=== PATIENT | female | born 1975 | race Caucasian/White ===

== ENCOUNTER 2017-02-16 12:14 | Emergency (ER) | payer MEDICAID ==
[~2017-02-16] VITALS: Ht 160 cm; Wt 83.5 kg
[2017-02-16 12:18] VITALS: Ht 160 cm; Wt 83.5 kg
[2017-02-16] MEDS ORDERED: LIDOCAINE 2% (MDV) 20 ML INJ INJ ONE (13:30)
[2017-02-16] MEDS ORDERED: SULF1TAB31 PO (13:54)
[2017-02-16] MEDS ORDERED: CEPH-443 PO (13:54)
[2017-02-16] MEDS ORDERED: IBUP-1542 PO (13:55)
--- NOTE | 2017-02-16 14:00 | ERD ---
ER Documentation Chief Complaint Date/Time DATE: 02/16/17 TIME: 13:57 Chief Complaint GROIN PAIN AND SWELLING X2 DAYS, POSSIBLE ABSCESS HPI This is a 41-year-old female presents to the ER with an abscess to her vagina that started 2 days ago. Patient states that area has become more red and swollen and extremely painful. She denies any fevers or chills. ROS 12 point review of systems was done, all negative except per HPI. Medications Home Meds Active Scripts Ibuprofen* (Motrin*) 600 Mg Tab, 600 MG PO Q6, #30 TAB Prov:BRAULIO,SINA C 02/16/17 Cephalexin* (Keflex*) 500 Mg Capsule, 500 MG PO BID for 7 Days, CAP Prov:BRAULIOSINA C 02/16/17 Sulfamethoxazole/Trimethoprim* (Bactrim Ds* Tablet) 1 Each Tablet, 1 TAB PO BID , #14 TAB Prov:BRAULIO,SINA C 02/16/17 PMhx/Soc History of Surgery: No Anesthesia Reaction: No Hx Neurological Disorder: No Hx Respiratory Disorders: No Hx Cardiac Disorders: No Hx Psychiatric Problems: No Hx Miscellaneous Medical Probl: No Hx Alcohol Use: No Hx Substance Use: No Hx Tobacco Use: No Physical Exam Vitals Vital Signs Date Time Temp Pulse Resp B/P Pulse Ox O2 Delivery O2 Flow Rate FiO2 02/16/17 12:18 98.9 90 19 136/78 99 Physical Exam GENERAL: The patient is well developed and appropriate for usual state of health , in no apparent distress. HEENT: Atraumatic CHEST: Clear to auscultation bilaterally. There are no rales, wheezes or rhonchi. HEART: Regular rate and rhythm. No murmurs, clicks, rubs or gallops. : There is an abscess to the right labia majora. There is a small area of fluctuance with surrounding erythema. NEURO: Alert and oriented. Results 24 hrs Current Medications Medications (Trade) Dose Ordered Sig/David Route PRN Reason Start Time Stop Time Status Last Admin Dose Admin Lidocaine (Xylocaine 2% (Mdv) 20 ml) 20 ml ONCE ONCE INJ 02/16/17 13:30 02/16/17 13:31 DC Procedures/MDM Abscess Incision and Drainage with irrigation by me: Location: Right labia majora Anesthesia: Local 2% Lidocaine Technique: Irrigated. Disrupted loculations w/ instrumentation , copious amounts of purulent discharge was expressed. Packing: Quarter inch iodoform Complications: Neurovascularly intact post procedure 48 hour wound check. Scar minimization instructions given. Patient's skin symptoms have stabilized while they have been evaluated in the department and are appropriate for outpatient care and work up. Exam and w/u not consistent w/ sepsis, deep space infection, or foreign body. Patient will be sent home with Bactrim and with Keflex. Patient is to follow- up with her primary care doctor within 1-2 days or return to ER sooner if symptoms worsen. My medical decision making was discussed with patient she understands and agrees with plan. Departure Diagnosis: Primary Impression: Abscess Condition: Stable Patient Instructions: Abscess, Incision And Drainage Additional Instructions: Llame al doctor MAANA y alejandro oanh DEVIKA PARA DENTRO DE 1-2 REYNA.Dgale a la secretaria que nosotros le instruimos hacer esta devika.Avise o llame si perez condicin se empeora antes de la devika. Regresa aqui si peor o no mejor. SINA RAMSEY Feb 16, 2017 13:59
== END 2017-02-16 13:59 | disposition home or self-care (01) ==
LOC: FTE 12:14
DX: N76.4 Abscess of vulva (principal)
CPT/HCPCS: 56405; Z7610

== ENCOUNTER 2017-02-18 10:50 | Emergency (ER) | payer MEDICAID ==
[~2017-02-18] VITALS: Wt 82.2 kg
[~2017-02-18 10:50] MED LIST: CEPH-443 PO; IBUP-1542 PO; SULF1TAB31 PO
--- NOTE | 2017-02-18 11:09 | ERA ---
ER Documentation Chief Complaint Date/Time DATE: 02/18/17 TIME: 11:05 Chief Complaint s/p I&D right groin abcess, wound check HPI This is an overweight otherwise healthy 41-year-old female presented with a chief complaint of abscess. Patient had an incision and drainage performed by Sina Trinh PA-C 2 days ago. Patient denies fevers, chills, numbness, tingling, excessive pain. Patient has said that her symptoms have improved. Patient has been undergoing management as advised. There are no other complaints and the patient describes no other associated manifestations. ROS All systems reviewed and are negative except as per history of present illness. Medications Home Meds Active Scripts Acetaminophen* (Tylenol*) 325 Mg Tablet, 1 TAB PO Q6 Y for PAIN AND OR ELEVATED TEMP, #20 TAB Prov:JAIRO FORTUNE PA-C 02/18/17 Ibuprofen* (Motrin*) 600 Mg Tab, 600 MG PO Q6, #30 TAB Prov:SINA TRINH 02/16/17 Cephalexin* (Keflex*) 500 Mg Capsule, 500 MG PO BID for 7 Days, CAP Prov:SINA TRINH 02/16/17 Sulfamethoxazole/Trimethoprim* (Bactrim Ds* Tablet) 1 Each Tablet, 1 TAB PO BID , #14 TAB Prov:SINA TRINH 02/16/17 Allergies Allergies: Coded Allergies: No Known Allergy (Unverified , 02/18/17) PMhx/Soc History of Surgery: No Anesthesia Reaction: No Hx Neurological Disorder: No Hx Respiratory Disorders: No Hx Cardiac Disorders: No Hx Psychiatric Problems: No Hx Miscellaneous Medical Probl: No Hx Alcohol Use: No Hx Substance Use: No Hx Tobacco Use: No Physical Exam Vitals Physical Exam Const: Overweight 41-year-old female in no acute distress Head: Atraumatic Eyes: Normal Conjunctiva ENT: Normal External Ears, Nose and Mouth. Neck: Full range of motion..~ No meningismus. Resp: Clear to auscultation bilaterally Cardio: Regular rate and rhythm, no murmurs Abd: Soft, non tender, non distended. Normal bowel sounds Skin: [] Back: No midline or flank tenderness Ext: No cyanosis, or edema Neur: Awake and alert Psych: Normal Mood and Affect Procedures/MDM This is a 41-year-old female presenting for wound check from an incision and drainage performed by Sina Trinh PA-C 2 days ago. Patient has no concerning symptoms that she describes. Denies all other symptoms and associated manifestations. Skin exam revealed a well healing abscess post I&D. Have advised patient to continue management as directed by Sina and return to the emergency department immediately if symptoms worsen. Patient has verbally agreed to these parameters as well as confirming she understands her current condition and plan of management. Vitals are stable and will be discharged at this time with discharge instructions and return precautions. Discharge medications: Acetaminophen p.o. 325 mg Departure Diagnosis: Primary Impression: Encounter for wound re-check Condition: Stable Additional Instructions: Follow up with your PCP within the next 1-3 days for a more thorough evaluation and a possible referral to a specialist. Return the the emergency department immediately if symptoms worsen or change. If you have any questions regarding medications, ask your pharmacist or us before you leave. If any adverse reactions occur while taking your medications, discontinue the treatment and return to the emergency department immediately. Take your medications as directed, and complete the entire course of treatment. JAIRO FORTUNE PA-C Feb 18, 2017 11:09
[2017-02-18] MEDS ORDERED: ACET325T33 PO (12:08)
== END 2017-02-18 13:10 | disposition home or self-care (01) ==
LOC: FTE 10:50
DX: Z48.01 Encounter for change or removal of surgical wound dressing (principal)
CPT/HCPCS: 99283